=== PATIENT | female | born 1980 | race American Indian/Alaskan Native ===

== ENCOUNTER 2021-11-20 01:07 | Inpatient (IN) | payer MEDICAID ==
[2021-11-20] MEDS ORDERED: dilTIAZem 25 MG/5 ML INJ IV ONE (01:47)
[2021-11-20] MEDS ORDERED: dilTIAZem/D5W 100 MG/100 ML BAG IV SCH (02:00)
[2021-11-20 02:46] LABS: Basophils # (Auto) 0.1 K/mm3 (0.0-0.1); Basophils % (Auto) 0.8 % (0.0-1.8); Eosinophils # (Auto) 0.4 K/mm3 (0.0-0.4); Eosinophils % (Auto) 2.8 % (0.0-4.3); Hematocrit 40.7 % (30.3-42.9); Hemoglobin 13.2 gm/dl (10.1-14.3); Lymphocytes # (Auto) 4.2 K/mm3 (1.2-5.4); Lymphocytes % (Auto) 33.5 % (13.4-35.0); Mean Corpuscular HGB Conc 33 % (30-34); Mean Corpuscular Volume 84 fl (79-97); Monocytes # (Auto) 0.7 K/mm3 (0.0-0.8); Monocytes % (Auto) 5.5 % (0.0-7.3); Platelet Count 250 K/mm3 (140-440); Red Blood Count 4.84 M/mm3 (3.65-5.03); Red Cell Distribution Width 13.1 % (13.2-15.2)
[2021-11-20 02:54] LABS: INR 1.04 (0.87-1.13)
[2021-11-20 02:55] LABS: Partial Thromboplastin Time 24.1 Sec. (24.2-36.6)
[2021-11-20 03:08] LABS: BUN/Creatinine Ratio 13; Blood Urea Nitrogen 10 mg/dL (7-17); Calcium 9.2 mg/dL (8.4-10.2); Hemolysis Index 6
[2021-11-20 03:15] LABS: Free T4 (Free Thyroxine) 1.37 ng/dL (0.76-1.46)
--- NOTE | 2021-11-20 03:30 | Emergency Department Report ---
ED Palpitations HPI - General Chief Complaint: Chest Pain Stated Complaint: CHEST PAIN Time Seen by Provider: 11/20/21 01:37 Source: patient, old records reviewed (No previous medical record for review) Mode of arrival: Ambulatory Limitations: No Limitations - History of Present Illness Initial Comments: 41-year-old female with a past medical history of obesity and previous A. fib in the past presents to the hospital complaints of palpitations that started just prior to arrival. Patient was about to lay down to go to bed when she felt her heart racing with shortness of breath and very mild chest tightness. Symptoms worse with exertion. Upon triage assessment patient was noted to have a heart rate of 150s with A. fib on the initial EKG. 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 Patient states she has a previous history of atrial fibril lation and was on Eliquis and unknown heart rate control medication in the past. She has been off her meds for the past 2 years since she converted to sinus rhythm. Patient has recently been on vacation for the last several days has been increasing her caffeine intake and drinking coffee and a lot of Coca-Cola. She also missed her daily dose of a.m. dose of propanolol and did not take it yesterday evening. - Related Data Allergies Allergy/AdvReac Type Severity Reaction Status Date / Time No Known Allergies Allergy Verified 11/20/21 01:27 ED Review of Systems ROS: Stated complaint: CHEST PAIN Other details as noted in HPI Comment: All other systems reviewed and negative ED Past Medical Hx - Past Medical History Additional medical history: hx: a fib - Surgical History Past Surgical History?: No ED Physical Exam - General Limitations: No Limitations - Other Other exam information: General: No acute distress Head: Atraumatic Eyes: normal appearance ENT: Moist mucous membranes Neck: Normal appearance, no midline tenderness Chest: Clear to auscultation bilaterally CV: Tachycardic irregular rhythm Abdomen: Soft, normal bowel sounds, nontender, nondistended, no rebound or guarding Back: Normal inspection Extremity: Normal inspection, full range of motion Neuro: Alert O x 3, no facial asymmetry, speech clear, no gross motor sensory deficit Psych: Appropriate behavior Skin: No rash ED Course Vital Signs 11/20/21 11/20/21 11/20/21 01:26 01:45 02:00 Temperature Pulse Rate 121 H 120 H 163 H Respiratory 21 20 18 Rate Blood Pressure 117/86 91/73 Blood Pressure 125/101 [Left] O2 Sat by Pulse 98 97 100 Oximetry 11/20/21 11/20/21 11/20/21 02:08 02:15 02:26 Temperature 97.7 F Pulse Rate 129 H 85 Respiratory 26 H Rate Blood Pressure 132/100 113/72 Blood Pressure [Left] O2 Sat by Pulse 97 Oximetry - Reevaluation(s) Reevaluation #1: 11/20/21 04:03 Nurse informs me that systolic blood pressure in the 90s. Nurse instructed to decrease Cardizem rate to 2.5 mg/h and provide 500 normal saline bolus ED Medical Decision Making - Lab Data Result diagrams: 11/20/21 02:23 11/20/21 02:23 Lab Results 11/20/21 11/20/21 11/20/21 Range/Units 02:23 02:23 02:23 WBC 12.4 H (4.5-11.0) K/mm3 RBC 4.84 (3.65-5.03) M/mm3 Hgb 13.2 (10.1-14.3) gm/dl Hct 40.7 (30.3-42.9) % MCV 84 (79-97) fl MCH 27 L (28-32) pg MCHC 33 (30-34) % RDW 13.1 L (13.2-15.2) % Plt Count 250 (140-440) K/mm3 Lymph % (Auto) 33.5 (13.4-35.0) % Gregory % (Auto) 5.5 (0.0-7.3) % Eos % (Auto) 2.8 (0.0-4.3) % Baso % (Auto) 0.8 (0.0-1.8) % Lymph # (Auto) 4.2 (1.2-5.4) K/mm3 Gregory # (Auto) 0.7 (0.0-0.8) K/mm3 Eos # (Auto) 0.4 (0.0-0.4) K/mm3 Baso # (Auto) 0.1 (0.0-0.1) K/mm3 Seg Neutrophils % 57.4 (40.0-70.0) % Seg Neutrophils # 7.1 (1.8-7.7) K/mm3 PT 14.7 (12.2-14.9) Sec. INR 1.04 (0.87-1.13) APTT 24.1 L (24.2-36.6) Sec. Sodium (137-145) mmol/L Potassium (3.6-5.0) mmol/L Chloride (98-107) mmol/L Carbon Dioxide (22-30) mmol/L Anion Gap mmol/L BUN (7-17) mg/dL Creatinine (0.6-1.2) mg/dL Estimated GFR ml/min BUN/Creatinine Ratio % Glucose (65-100) mg/dL Calcium (8.4-10.2) mg/dL Troponin T (0.00-0.029) ng/mL TSH (0.270-4.200) mlU/mL Free T4 (0.76-1.46) ng/dL HCG, Qual Negative (Negative) 11/20/21 11/20/21 Range/Units 02:23 02:23 WBC (4.5-11.0) K/mm3 RBC (3.65-5.03) M/mm3 Hgb (10.1-14.3) gm/dl Hct (30.3-42.9) % MCV (79-97) fl MCH (28-32) pg MCHC (30-34) % RDW (13.2-15.2) % Plt Count (140-440) K/mm3 Lymph % (Auto) (13.4-35.0) % Gregory % (Auto) (0.0-7.3) % Eos % (Auto) (0.0-4.3) % Baso % (Auto) (0.0-1.8) % Lymph # (Auto) (1.2-5.4) K/mm3 Gregory # (Auto) (0.0-0.8) K/mm3 Eos # (Auto) (0.0-0.4) K/mm3 Baso # (Auto) (0.0-0.1) K/mm3 Seg Neutrophils % (40.0-70.0) % Seg Neutrophils # (1.8-7.7) K/mm3 PT (12.2-14.9) Sec. INR (0.87-1.13) APTT (24.2-36.6) Sec. Sodium 141 (137-145) mmol/L Potassium 4.1 (3.6-5.0) mmol/L Chloride 104.3 (98-107) mmol/L Carbon Dioxide 23 (22-30) mmol/L Anion Gap 18 mmol/L BUN 10 (7-17) mg/dL Creatinine 0.8 (0.6-1.2) mg/dL Estimated GFR > 60 ml/min BUN/Creatinine Ratio 13 % Glucose 106 H (65-100) mg/dL Calcium 9.2 (8.4-10.2) mg/dL Troponin T < 0.010 (0.00-0.029) ng/mL TSH 1.230 (0.270-4.200) mlU/mL Free T4 1.37 (0.76-1.46) ng/dL HCG, Qual (Negative) - EKG Data -: EKG Interpreted by Me (Atrial fibrillation) EKG shows normal: intervals (QTC 471), QRS complexes (QRS duration 79), ST-T waves Rate: tachycardia (Rate 151) - Medical Decision Making 41-year-old female presents to the hospital [facility] with RVR with symptoms of shortness of breath and chest tightness. Patient has a history of same in the past but has been in sinus rhythm for the last 2 years. Heart rate improved after Cardizem bolus 20 mg followed by Cardizem drip at 5 milligrams per hour. Cardiology consult ordered. Patient exacerbation could be secondary to increased caffeine intake and delayed propanolol intake as well. hospitalist informed for admission Critical Care Time: Yes Critical care time in (mins) excluding proc time.: 35 Critical care attestation.: If time is entered above; I have spent that time in minutes in the direct care of this critically ill patient, excluding procedure time. Critical Care Time: 35 Minutes of critical care time excluding procedures were used in the care of the patient. I came immediately to the bedside upon patient's arrival once I was made aware of the patient. Patient required IV cardiac medication to stabilize heart rate and he required Cardizem drip to maintain heart rate less than 100. Cardiology consult ordered. Hospitalist admitted. ED Disposition Clinical Impression: Atrial fibrillation with rapid ventricular response Disposition: ADMITTED INPATIENT Is pt being admited?: Yes Does the pt Need Aspirin: No Condition: Stable Time of Disposition: 03:24 (Dr Bowman)
--- NOTE | 2021-11-20 03:42 | XRay Report ---
CHEST 1 VIEW 11/20/2021 3:03 AM INDICATION / CLINICAL INFORMATION: Palpitations. COMPARISON: None available. FINDINGS: SUPPORT DEVICES: None. HEART / MEDIASTINUM: No significant abnormality. LUNGS / PLEURA: No significant pulmonary or pleural abnormality. No pneumothorax. ADDITIONAL FINDINGS: No significant additional findings. IMPRESSION: 1. No acute findings. Signer Name: Ant Stewart MD Signed: 11/20/2021 3:37 AM Workstation Name: [id number]
[2021-11-20] MEDS ORDERED: SODIUM CHLORIDE 0.9% 500 ML 500 ML IV ONE (04:03)
[2021-11-20] MEDS ORDERED: SODIUM CHLORIDE 0.9% 500 ML 500 ML ONE (04:04)
[2021-11-20] MEDS ORDERED: ACETAMINOPHEN 325 MG TAB PO PRN ×2 (04:45)
[2021-11-20] MEDS ORDERED: NITROGLYCERIN 0.4 MG TAB SUBL SL PRN (04:45)
[2021-11-20] MEDS ORDERED: MORPHINE 2 MG/1 ML INJ IV PRN (04:45)
[2021-11-20] MEDS ORDERED: ONDANSETRON 4 MG/2 ML INJ IV PRN (04:45)
[2021-11-20] MEDS ORDERED: ALBUTEROL 2.5 MG/3 ML NEBU IH PRN (04:45)
[2021-11-20] MEDS ORDERED: HYDROmorphone 1 MG/1 ML INJ IV PRN (04:45)
[2021-11-20] MEDS ORDERED: traMADol 50 MG TAB PO PRN (04:45)
--- NOTE | 2021-11-20 04:54 | History and Physical Report ---
History of Present Illness Date of examination: 11/20/21 Date of admission: 11/20/21 Chief complaint: Chest pain Palpitation A. fib History of present illness: 41-year-old female with a past medical history of obesity and previous A. fib was brought to the emergency room because of palpitation arrhythmia and chest pain since this evening. Patient was about to lay down to go to bed when she felt her heart racing with shortness of breath and very mild chest tightness. Symptoms worse with exertion. Upon triage assessment patient was noted to have a heart rate of 150s with A. fib on the initial EKG. 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 Patient states she has a previous history of atrial fibrillation and was on Eliquis and unknown heart rate control medication in the past. She has been off her meds for the past 2 years since she converted to sinu s rhythm. Patient has recently been on vacation for the last several days has been increasing her caffeine intake and drinking coffee and a lot of Coca-Cola. She also missed her daily dose of a.m. dose of propanolol and did not take it yesterday evening. In the emergency room patient is found to have A. fib with RVR. Heart rate improved after Cardizem bolus 20 mg followed by Cardizem drip at 5 milligrams per hour. Cardiology consult ordered. Patient exacerbation could be secondary to increased caffeine intake and delayed propanolol intake as well. Past History Past Medical History: atrial fib Medications and Allergies Allergies Allergy/AdvReac Type Severity Reaction Status Date / Time amoxicillin Allergy Hives Verified 11/20/21 04:19 Active Meds: Active Medications Diltiazem HCl (Cardizem/D5w 100mg/100ml) 100 mg in 100 mls @ 5 mls/hr IV TITR NAV; Protocol Last Titration: 11/20/21 04:05 Dose: 2.5 mg/hr, 2.5 mls/hr Review of Systems All systems: negative Cardiovascular: chest pain, palpitations, rapid/irregular heart beat, lightheadedness Exam - Constitutional Vitals: Temp Pulse Resp BP Pulse Ox 97.7 F 110 H 15 92/55 98 11/20/21 02:26 11/20/21 04:01 11/20/21 04:01 11/20/21 04:01 11/20/21 04:01 General appearance: Present: no acute distress, well-nourished - EENT Eyes: Present: PERRL ENT: hearing intact, clear oral mucosa - Neck Neck: Present: supple, normal ROM - Respiratory Respiratory effort: normal Respiratory: bilateral: diminished - Cardiovascular Rhythm: irregularly irregular Heart Sounds: Present: S1 & S2. Absent: rub, click - Extremities Extremities: pulses symmetrical, No edema Peripheral Pulses: within normal limits - Abdominal General gastrointestinal: Present: soft, non-tender, non-distended, normal bowel sounds Female genitourinary: Present: normal - Integumentary Integumentary: Present: clear, warm, dry - Musculoskeletal Musculoskeletal: gait normal, strength equal bilaterally - Psychiatric Psychiatric: appropriate mood/affect, intact judgment & insight - Neurologic Neurologic: CNII-XII intact, moves all extremities HEART Score - HEART Score Troponin: Troponin T < 0.010 ng/mL (0.00-0.029) 11/20/21 02:23 Results - Labs CBC & Chem 7: 11/20/21 02:23 11/20/21 02:23 Labs: Laboratory Last Values WBC 12.4 K/mm3 (4.5-11.0) H 11/20/21 02:23 RBC 4.84 M/mm3 (3.65-5.03) 11/20/21 02:23 Hgb 13.2 gm/dl (10.1-14.3) 11/20/21 02:23 Hct 40.7 % (30.3-42.9) 11/20/21 02:23 MCV 84 fl (79-97) 11/20/21 02:23 MCH 27 pg (28-32) L 11/20/21 02:23 MCHC 33 % (30-34) 11/20/21 02:23 RDW 13.1 % (13.2-15.2) L 11/20/21 02:23 Plt Count 250 K/mm3 (140-440) 11/20/21 02:23 Lymph % (Auto) 33.5 % (13.4-35.0) 11/20/21 02:23 Baker % (Auto) 5.5 % (0.0-7.3) 11/20/21 02: Eos % (Auto) 2.8 % (0.0-4.3) 11/20/21 02:23 Baso % (Auto) 0.8 % (0.0-1.8) 11/20/21 02:23 Lymph # (Auto) 4.2 K/mm3 (1.2-5.4) 11/20/21 02:23 Baker # (Auto) 0.7 K/mm3 (0.0-0.8) 11/20/21 02:23 Eos # (Auto) 0.4 K/mm3 (0.0-0.4) 11/20/21 02:23 Baso # (Auto) 0.1 K/mm3 (0.0-0.1) 11/20/21 02:23 Seg Neutrophils % 57.4 % (40.0-70.0) 11/20/21 02: Seg Neutrophils # 7.1 K/mm3 (1.8-7.7) 11/20/21 02: PT 14.7 Sec. (12.2-14.9) 11/20/21 02: INR 1.04 (0.87-1.13) 11/20/21 02:23 APTT 24.1 Sec. (24.2-36.6) L 11/20/21 02:23 Sodium 141 mmol/L (137-145) 11/20/21 02:23 Potassium 4.1 mmol/L (3.6-5.0) 11/20/21 02: Chloride 104.3 mmol/L (98-107) 11/20/21 02:23 Carbon Dioxide 23 mmol/L (22-30) 11/20/21 02:23 Anion Gap 18 mmol/L 11/20/21 02:23 BUN 10 mg/dL (7-17) 11/20/21 02:23 Creatinine 0.8 mg/dL (0.6-1.2) 11/20/21 02:23 Estimated GFR > 60 ml/min 11/20/21 02:23 BUN/Creatinine Ratio 13 % 11/20/21 02:23 Glucose 106 mg/dL (65-100) H 11/20/21 02:23 Calcium 9.2 mg/dL (8.4-10.2) 11/20/21 02:23 Troponin T < 0.010 ng/mL (0.00-0.029) 11/20/21 02:23 TSH 1.230 mlU/mL (0.270-4.200) 11/20/21 02:23 Free T4 1.37 ng/dL (0.76-1.46) 11/20/21 02:23 HCG, Qual Negative (Negative) 11/20/21 02:23 - Imaging and Cardiology Chest x-ray: report reviewed Assessment and Plan VTE prophylaxis?: Chemical Plan of care discussed with patient/family: Yes - Patient Problems (1) Atrial fibrillation with rapid ventricular response Current Visit: Yes Status: Acute Plan to address problem: Admit the patient to the ICU. Oxygen per nasal cannula 3 L/min. DuoNeb by nebulizer every 4 hours. Aspirin 325 mg p.o. daily. Lipitor 40 mg p.o. daily. Echocardiogram. Patient is on Cardizem drip as per protocol. Cardiology consult. Heparin 5000 units subcu every 8 hours. (2) Acute coronary syndrome Current Visit: Yes Status: Acute Plan to address problem: Oxygen per nasal cannula 3 L/min. DuoNeb by nebulizer every 4 hours. Aspirin 325 mg p.o. daily. Lipitor 40 mg p.o. daily. Echocardiogram. Cardiology consult. Heparin 5000 units subcu every 8 hours. (3) DVT prophylaxis Current Visit: Yes Status: Acute Plan to address problem: Heparin 5000 units subcu every 8 hours for DVT prophylaxis. Pepcid 20 mg p.o. twice daily for GI prophylaxis. Patient is a full code
[2021-11-20] MEDS ORDERED: ALPRAZolam 0.25 MG TAB PO ONE (05:19)
[2021-11-20] MEDS ORDERED: HEPARIN 5,000 UNIT/1 ML VIAL SUB-Q SCH (06:00)
[2021-11-20 06:01] LABS: Hematocrit 39.8 % (30.3-42.9); Hemoglobin 12.8 gm/dl (10.1-14.3); Mean Corpuscular HGB Conc 32 % (30-34); Mean Corpuscular Volume 84 fl (79-97); Platelet Count 251 K/mm3 (140-440); Red Blood Count 4.72 M/mm3 (3.65-5.03); Red Cell Distribution Width 13.1 % (13.2-15.2)
[2021-11-20 06:26] LABS: Blood Urea Nitrogen 9 mg/dL (7-17); Calcium 8.8 mg/dL (8.4-10.2); Hemolysis Index 2
[2021-11-20 06:29] LABS: BUN/Creatinine Ratio 13
[2021-11-20 07:00] LABS: Basophils % (Manual) 0 % (0.0-1.8); RBC Morphology Normal; Total Cells Counted 100
[2021-11-20 07:01] LABS: Platelet Estimate Consistent w Auto
[2021-11-20] MEDS ORDERED: IPRATROPIUM/ALBUTEROL SULFATE 3 ML AMPUL.NEB IH SCH (08:00)
--- NOTE | 2021-11-20 09:00 | Electrocardiograph Report ---
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
--- NOTE | 2021-11-20 09:47 | Consultation ---
History of Present Illness - Reason for Consult Consult date: 11/20/21 Afib Requesting physician: HECTOR HOWARD - History of Present Illness 41 y/o with prior afib admitted with afib with RVR Past History Past Medical History: atrial fib Medications and Allergies Allergies Allergy/AdvReac Type Severity Reaction Status Date / Time amoxicillin Allergy Hives Verified 11/21/21 08:11 Home Medications Medication Instructions Recorded Confirmed Last Taken Type Apixaban [Eliquis] 5 mg PO Q12HR 30 Days #60 tablet 11/21/21 Unknown Rx Ascorbic Acid [Vitamin C] 1,000 mg PO QDAY 11/21/21 11/21/21 1 Week Ago History ~11/14/21 AtorvaSTATin [Lipitor] 40 mg PO QHS 30 Days #30 tablet 11/21/21 Unknown Rx Cholecalciferol (Vitamin D3) 1,250 mcg PO QWEEK 11/21/21 11/21/21 11/20/21 History [Vitamin D3 50,000UNIT CAP] Multivitamin Tab [Multiple Vitamin 1 each PO QDAY 11/21/21 11/21/21 1 Week Ago History TAB (Theragran)] ~11/14/21 [place]-3 Fatty Acids/Fish Oil [Fish 1 each PO DAILY 11/21/21 11/21/21 11/20/21 History Oil] Omeprazole 40 mg PO QDAY 11/21/21 11/21/21 11/20/21 History dilTIAZem HCL [Tiadylt ER] 240 mg PO DAILY 30 Days #30 tab 11/21/21 Unknown Rx Active Meds: Active Medications Acetaminophen (Acetaminophen 325 Mg Tab) 650 mg PO Q4H PRN PRN Reason: Pain MILD(1-3)/Fever >100.5/REIS Aspirin (Aspirin Ec 325 Mg Tab) 325 mg PO QDAY NAV Atorvastatin Calcium (Atorvastatin 40 Mg Tab) 40 mg PO QHS NAV Famotidine (Famotidine 20 Mg Tab) 20 mg PO BID NAV Heparin Sodium (Porcine) (Heparin 5,000 Unit/1 Ml Vial) 5,000 unit SUB-Q Q8HR [facility] Last Admin: 11/20/21 05:31 Dose: 5,000 unit Hydromorphone HCl (Hydromorphone 1 Mg/1 Ml Inj) 0.5 mg IV Q3H PRN PRN Reason: Pain , Severe (7-10) Diltiazem HCl (Cardizem/D5w 100mg/100ml) 100 mg in 100 mls @ 5 mls/hr IV TITR NAV; Protocol Last Titration: 11/20/21 04:05 Dose: 2.5 mg/hr, 2.5 mls/hr Morphine Sulfate (Morphine 2 Mg/1 Ml Inj) 2 mg IV Q4H PRN PRN Reason: Pain, Moderate (4-6) Nitroglycerin (Nitroglycerin 0.4 Mg Tab Subl) 0.4 mg SL Q5M PRN PRN Reason: Chest Pain Ondansetron HCl (Ondansetron 4 Mg/2 Ml Inj) 4 mg IV Q8H PRN PRN Reason: Nausea And Vomiting Sodium Chloride (Sodium Chloride 0.9% 10 Ml Flush Syringe) 10 ml IV BID NAV Sodium Chloride (Sodium Chloride 0.9% 10 Ml Flush Syringe) 10 ml IV PRN PRN PRN Reason: LINE FLUSH Sodium Chloride (Sodium Chloride 0.9% 10 Ml Flush Syringe) 10 ml IV PRN PRN PRN Reason: LINE FLUSH Tramadol HCl (Tramadol 50 Mg Tab) 50 mg PO Q6H PRN PRN Reason: Pain, Moderate (4-6) Exam - Constitutional Vitals: Temp Pulse Resp BP Pulse Ox 97.7 F 112 H 13 95/42 97 11/20/21 02:26 11/20/21 07:31 11/20/21 07:31 11/20/21 07:31 11/20/21 07:31 Results - Labs CBC & Chem 7: 11/21/21 04:17 11/21/21 04:17 Labs: Abnormal lab results 11/20/21 11/20/21 11/20/21 Range/Units 02:23 02:23 02:23 WBC 12.4 H (4.5-11.0) K/mm3 MCH 27 L (28-32) pg RDW 13.1 L (13.2-15.2) % Lymphocytes % (Manual) (13.4-35.0) % Eosinophils % (Manual) (0.0-4.3) % Eosinophils # (Manual) (0.0-0.4) K/mm3 APTT 24.1 L (24.2-36.6) Sec. Chloride (98-107) mmol/L Carbon Dioxide (22-30) mmol/L Glucose 106 H (65-100) mg/dL 11/20/21 11/20/21 Range/Units 05:36 05:36 WBC 11.4 H (4.5-11.0) K/mm3 MCH 27 L (28-32) pg RDW 13.1 L (13.2-15.2) % Lymphocytes % (Manual) 43.0 H (13.4-35.0) % Eosinophils % (Manual) 5.0 H (0.0-4.3) % Eosinophils # (Manual) 0.6 H (0.0-0.4) K/mm3 APTT (24.2-36.6) Sec. Chloride 107.4 H (98-107) mmol/L Carbon Dioxide 21 L (22-30) mmol/L Glucose (65-100) mg/dL Assessment and Plan 41 y/o female with afib with RVR now rate controlled on oral therapy No current indication for ICU. Will sign off.
--- NOTE | 2021-11-20 09:49 | Progress Note ---
Assessment and Plan Assessment and plan: Dispo: can downgrade to tele bed. likely d/c in the morning. #Atrial fibrillation with rapid ventricular response - afib rvr on tele and EKG ventricular rate as high as 130's. on 3L/min nc. - history of "palpitations" was seen by cardiology a year ago but was told to d/c eliquis due to no event being found. Also was on metoprolol but d/c due to fatigue and dizziness. - currently rate controlled - continuous telemetry - d/c nasal cannula, patient can tolerate room air. - diltizem gtt now d/c - start diltiazem 60 mg po tid - start Eliquis 5 mg po bid - ECHO pending #Essential hypertension - takes propranolol as OP. - resume home med. # Morbid Obesity - BMI 39.3 - behavioral counseling on need for weight loss and the effect on overall health. +15 mins #Nicotine Use - patient vapes. Behavioral health counseling, risks, and quitting strategies communicated to patient in regards to vaping. +15 min #Advance care planning Disease education conducted, care plan discussed, diagnoses discussed, prognosis discussed, patient is full code, patient acknowledges understanding and agree with care plan, +30 minutes. The high probability of a clinically significant, sudden or life threatening deterioration of the [cardiac] system(s) required my full and direct attention, intervention and personal management. The aggregate critical care time was [60] minutes. This time is in addition to time spent performing reported procedures but includes the following: [x] Data Review and interpretation [x] Patient assessment and monitoring of vital signs [x] Documentation [x] Medication orders and management History Interval history: Patient has no complaints this AM. States that shortness of breath and papitations have improved and nearly resolved. HR currently controlled, rhythm is afib on tele monitoring during my encounter. Patient was on 2L NC for comfort but advised RN to d/c. She was satting 98% on my encounter while supplemental O2 was removed. Hospitalist Physical - Physical exam Narrative exam: Physical Exam: VITAL SIGNS: Reviewed. GENERAL: The patient appears normally developed, Vital signs as documented. Elevated BMI HEAD: No signs of head trauma. EYES: Pupils are equal. Extraocular motions intact. EARS: Hearing grossly intact. MOUTH: Oropharynx is normal. NECK: No adenopathy, no JVD. CHEST: Chest with clear breath sounds bilaterally. No wheezes, rales, or rhonchi. CARDIAC: Regular rate and irregular rhythm. S1 and S2, without murmurs, gallops, or rubs. VASCULAR: No Edema. Peripheral pulses normal and equal in all extremities. ABDOMEN: Soft, non tender and non distended. No rebound or guarding, and no masses palpated. Bowel Sounds normal. MUSCULOSKELETAL: Good range of motion of all major joints. Extremities without clubbing, cyanosis or edema. NEUROLOGIC EXAM: Alert and oriented x 4. no focal sensory or strength deficits. PSYCHIATRIC: Mood normal. SKIN: detail exam as documented in skin assessment - Constitutional Vitals: Temp Pulse Resp BP Pulse Ox 97.7 F 112 H 13 95/42 97 11/20/21 02:26 11/20/21 07:31 11/20/21 07:31 11/20/21 07:31 11/20/21 07:31 General appearance: Present: no acute distress, well-nourished HEART Score - HEART Score Troponin: Troponin T < 0.010 ng/mL (0.00-0.029) 11/20/21 07:50 Results - Labs CBC & Chem 7: 11/20/21 05:36 11/20/21 05:36 Labs: Laboratory Last Values WBC 11.4 K/mm3 (4.5-11.0) H 11/20/21 05:36 RBC 4.72 M/mm3 (3.65-5.03) 11/20/21 05:36 Hgb 12.8 gm/dl (10.1-14.3) 11/20/21 05:36 Hct 39.8 % (30.3-42.9) 11/20/21 05:36 MCV 84 fl (79-97) 11/20/21 05:36 MCH 27 pg (28-32) L 11/20/21 05:36 MCHC 32 % (30-34) 11/20/21 05:36 RDW 13.1 % (13.2-15.2) L 11/20/21 05:36 Plt Count 251 K/mm3 (140-440) 11/20/21 05:36 Lymph % (Auto) 33.5 % (13.4-35.0) 11/20/21 02:23 [place] % (Auto) 5.5 % (0.0-7.3) 11/20/21 02:23 Eos % (Auto) 2.8 % (0.0-4.3) 11/20/21 02:23 Baso % (Auto) 0.8 % (0.0-1.8) 11/20/21 02:23 Lymph # (Auto) Fitter Machinist 11/20/21 05:36 [place] # (Auto) 0.7 K/mm3 (0.0-0.8) 11/20/21 02:23 Eos # (Auto) 0.4 K/mm3 (0.0-0.4) 11/20/21 02:23 Baso # (Auto) 0.1 K/mm3 (0.0-0.1) 11/20/21 02:23 Add Manual Diff Complete 11/20/21 05:36 Total Counted 100 11/20/21 05:36 Seg Neutrophils % 57.4 % (40.0-70.0) 11/20/21 02:23 Seg Neuts % (Manual) 51.0 % (40.0-70.0) 11/20/21 05:36 Band Neutrophils % 0 % 11/20/21 05:36 Lymphocytes % (Manual) 43.0 % (13.4-35.0) H 11/20/21 05:36 Reactive Lymphs % (Man) 0 % 11/20/21 05:36 Monocytes % (Manual) 1.0 % (0.0-7.3) 11/20/21 05:36 Eosinophils % (Manual) 5.0 % (0.0-4.3) H 11/20/21 05:36 Basophils % (Manual) 0 % (0.0-1.8) 11/20/21 05:36 Metamyelocytes % 0 % 11/20/21 05:36 Myelocytes % 0 % 11/20/21 05:36 Promyelocytes % 0 % 11/20/21 05:36 Blast Cells % 0 % 11/20/21 05:36 Nucleated RBC % Not Reportable 11/20/21 05:36 Seg Neutrophils # 7.1 K/mm3 (1.8-7.7) 11/20/21 02:23 Seg Neutrophils # Man 5.8 K/mm3 (1.8-7.7) 11/20/21 05:36 Band Neutrophils # 0.0 K/mm3 11/20/21 05:36 Lymphocytes # (Manual) 4.9 K/mm3 (1.2-5.4) 11/20/21 05:36 Abs React Lymphs (Man) 0.0 K/mm3 11/20/21 05:36 Monocytes # (Manual) 0.1 K/mm3 (0.0-0.8) 11/20/21 05:36 Eosinophils # (Manual) 0.6 K/mm3 (0.0-0.4) H 11/20/21 05:36 Basophils # (Manual) 0.0 K/mm3 (0.0-0.1) 11/20/21 05:36 Metamyelocytes # 0.0 K/mm3 11/20/21 05:36 Myelocytes # 0.0 K/mm3 11/20/21 05:36 Promyelocytes # 0.0 K/mm3 11/20/21 05:36 Blast Cells # 0.0 K/mm3 11/20/21 05:36 WBC Morphology Not Reportable 11/20/21 05:36 Hypersegmented Neuts Not Reportable 11/20/21 05:36 Hyposegmented Neuts Not Reportable 11/20/21 05:36 Hypogranular Neuts Not Reportable 11/20/21 05:36 Smudge Cells Not Reportable 11/20/21 05:36 Toxic Granulation Not Reportable 11/20/21 05:36 Toxic Vacuolation Not Reportable 11/20/21 05:36 Dohle Bodies Not Reportable 11/20/21 05:36 Pelger-Huet Anomaly Not Reportable 11/20/21 05:36 Efren Rods Not Reportable 11/20/21 05:36 Platelet Estimate Consistent w auto 11/20/21 05:36 Clumped Platelets Not Reportable 11/20/21 05:36 Plt Clumps, EDTA Not Reportable 11/20/21 05:36 Large Platelets Not Reportable 11/20/21 05:36 Giant Platelets Not Reportable 11/20/21 05:36 Platelet Satelliting Not Reportable 11/20/21 05:36 Plt Morphology Comment Not Reportable 11/20/21 05:36 RBC Morphology Normal 11/20/21 05:36 Dimorphic RBCs Not Reportable 11/20/21 05:36 Polychromasia Not Reportable 11/20/21 05:36 Hypochromasia Not Reportable 11/20/21 05:36 Poikilocytosis Not Reportable 11/20/21 05:36 Anisocytosis Not Reportable 11/20/21 05:36 Microcytosis Not Reportable 11/20/21 05:36 Macrocytosis Not Reportable 11/20/21 05:36 Spherocytes Not Reportable 11/20/21 05:36 Pappenheimer Bodies Not Reportable 11/20/21 05:36 Sickle Cells Not Reportable 11/20/21 05:36 Target Cells Not Reportable 11/20/21 05:36 Tear Drop Cells Not Reportable 11/20/21 05:36 Ovalocytes Not Reportable 11/20/21 05:36 Helmet Cells Not Reportable 11/20/21 05:36 [place] Bodies Not Reportable 11/20/21 05:36 [place] Rings Not Reportable 11/20/21 05:36 [place] Cells Not Reportable 11/20/21 05:36 Bite Cells Not Reportable 11/20/21 05:36 Crenated Cell Not Reportable 11/20/21 05:36 Elliptocytes Not Reportable 11/20/21 05:36 Acanthocytes (Spur) Not Reportable 11/20/21 05:36 Rouleaux Not Reportable 11/20/21 05:36 Hemoglobin C Crystals Not Reportable 11/20/21 05:36 Schistocytes Not Reportable 11/20/21 05:36 Malaria parasites Not Reportable 11/20/21 05:36 Jareth Bodies Not Reportable 11/20/21 05:36 Hem Pathologist Commnt No 11/20/21 05:36 PT 14.7 Sec. (12.2-14.9) 11/20/21 02:23 INR 1.04 (0.87-1.13) 11/20/21 02:23 APTT 24.1 Sec. (24.2-36.6) L 11/20/21 02:23 Sodium 143 mmol/L (137-145) 11/20/21 05:36 Potassium 3.9 mmol/L (3.6-5.0) 11/20/21 05:36 Chloride 107.4 mmol/L (98-107) H 11/20/21 05:36 Carbon Dioxide 21 mmol/L (22-30) L 11/20/21 05:36 Anion Gap 19 mmol/L 11/20/21 05:36 BUN 9 mg/dL (7-17) 11/20/21 05:36 Creatinine 0.7 mg/dL (0.6-1.2) 11/20/21 05:36 Estimated GFR > 60 ml/min 11/20/21 05:36 BUN/Creatinine Ratio 13 % 11/20/21 05:36 Glucose 95 mg/dL (65-100) 11/20/21 05:36 Calcium 8.8 mg/dL (8.4-10.2) 11/20/21 05:36 Troponin T < 0.010 ng/mL (0.00-0.029) 11/20/21 07:50 TSH 1.230 mlU/mL (0.270-4.200) 11/20/21 02:23 Free T4 1.37 ng/dL (0.76-1.46) 11/20/21 02:23 HCG, Qual Negative (Negative) 11/20/21 02:23 Active Medications - Current Medications Current Medications: Generic Name Dose Route Start Last Admin Trade Name Freq PRN Reason Stop Dose Admin Acetaminophen 650 mg 11/20/21 04:45 Acetaminophen 325 Mg Tab PO Q4H PRN Pain MILD(1-3)/Fever >100.5/REIS Aspirin 325 mg 11/21/21 10:00 Aspirin Ec 325 Mg Tab PO QDAY [facility] Atorvastatin Calcium 40 mg 11/20/21 22:00 Atorvastatin 40 Mg Tab PO QHS [facility] Famotidine 20 mg 11/20/21 10:00 Famotidine 20 Mg Tab PO BID [facility] Heparin Sodium (Porcine) 5,000 unit 11/20/21 06:00 11/20/21 05:31 Heparin 5,000 Unit/1 Ml Vial SUB-Q 5,000 unit Q8HR NAV Administration Hydromorphone HCl 0.5 mg 11/20/21 04:45 Hydromorphone 1 Mg/1 Ml Inj IV Q3H PRN Pain , Severe (7-10) Diltiazem HCl 100 mg in 100 mls @ 5 mls/hr 11/20/21 02:00 11/20/21 04:05 Cardizem/D5w 100mg/100ml IV 2.5 mg/hr TITR NAV 2.5 mls/hr Titration Protocol 5 MG/HR Morphine Sulfate 2 mg 11/20/21 04:45 Morphine 2 Mg/1 Ml Inj IV Q4H PRN Pain, Moderate (4-6) Nitroglycerin 0.4 mg 11/20/21 04:45 Nitroglycerin 0.4 Mg Tab Subl SL Q5M PRN Chest Pain Ondansetron HCl 4 mg 11/20/21 04:45 Ondansetron 4 Mg/2 Ml Inj IV Q8H PRN Nausea And Vomiting Sodium Chloride 10 ml 11/20/21 10:00 Sodium Chloride 0.9% 10 Ml Flush Syringe IV BID NAV Sodium Chloride 10 ml 11/20/21 04:45 Sodium Chloride 0.9% 10 Ml Flush Syringe IV PRN PRN LINE FLUSH Sodium Chloride 10 ml 11/20/21 04:45 Sodium Chloride 0.9% 10 Ml Flush Syringe IV PRN PRN LINE FLUSH Tramadol HCl 50 mg 11/20/21 04:45 Tramadol 50 Mg Tab PO Q6H PRN Pain, Moderate (4-6)
[2021-11-20] MEDS: FAMOTIDINE 20 MG TAB PO SCH ×2 (10:05→23:57)
[2021-11-20] MEDS: APIXABAN 5 MG TAB PO SCH ×2 (11:11→23:56)
--- NOTE | 2021-11-20 13:50 | Consultation ---
History of Present Illness Consult date: 11/20/21 Requesting physician: ALEXEI MCCLELLAND Consult reason: atrial fibrillation History of present illness: Patient is a 41-year-old female with a past medical history of A. fib who was brought to the ED due to having palpitations 1 day prior to admission. Patient reports she was lying down in bed when she suddenly felt her heart racing and had some shortness of breath with some mild tight chest tightness patient was transferred to [facility] and found to have heart rate of 150s. In ED patient was started on Cardizem drip and heart rate became controlled. Patient reports that she was previously on Eliquis and other medications due to her A. fib but has not been on them in some time since she has been in sinus rhythm. She also reports having increased intake of caffeine. She reports ta hillary propanolol as an outpatient but missed her dose yesterday. At time of interview patient denies chest pain, palpitations, shortness of breath, nausea, vomiting, lightheadedness. 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 Cardiology is consulted for A. fib with RVR Past History Past Medical History: atrial fib Social history: no significant social history Family history: no significant family history Medications and Allergies Allergies Allergy/AdvReac Type Severity Reaction Status Date / Time amoxicillin Allergy Hives Verified 11/20/21 04:19 Active Meds: Active Medications Acetaminophen (Acetaminophen 325 Mg Tab) 650 mg PO Q4H PRN PRN Reason: Pain MILD(1-3)/Fever >100.5/REIS Apixaban (Apixaban 5 Mg Tab) 5 mg PO Q12HR [facility]; Protocol Last Admin: 11/20/21 11:11 Dose: 5 mg Atorvastatin Calcium (Atorvastatin 40 Mg Tab) 40 mg PO QHS NAV Diltiazem HCl (Diltiazem 60 Mg Tab) 60 mg PO Q8HR NAV Famotidine (Famotidine 20 Mg Tab) 20 mg PO BID [facility] Last Admin: 11/20/21 10:05 Dose: 20 mg Nitroglycerin (Nitroglycerin 0.4 Mg Tab Subl) 0.4 mg SL Q5M PRN PRN Reason: Chest Pain Ondansetron HCl (Ondansetron 4 Mg/2 Ml Inj) 4 mg IV Q8H PRN PRN Reason: Nausea And Vomiting Sodium Chloride (Sodium Chloride 0.9% 10 Ml Flush Syringe) 10 ml IV BID NAV Last Admin: 11/20/21 10:05 Dose: 10 ml Sodium Chloride (Sodium Chloride 0.9% 10 Ml Flush Syringe) 10 ml IV PRN PRN PRN Reason: LINE FLUSH Review of Systems Constitutional: no weight loss, no weight gain, no fever, no chills, no sweats Ears, nose, mouth and throat: no nasal congestion, no nasal discharge, no sinus pressure, no sinus pain Cardiovascular: palpitations, rapid/irregular heart beat, no chest pain, no orthopnea, no lightheadedness, no shortness of breath Respiratory: no hemoptysis, no shortness of breath, no dyspnea on exertion Gastrointestinal: no abdominal pain, no nausea, no vomiting, no diarrhea Musculoskeletal: no neck stiffness, no neck pain, no shooting arm pain, no arm numbness/tingling Integumentary: no rash, no pruritis, no redness Neurological: no head injury, no transient paralysis, no paralysis Psychiatric: no anxiety, no memory loss Endocrine: no cold intolerance, no heat intolerance Hematologic/Lymphatic: no easy bruising, no easy bleeding Physical Examination Vital Signs Pulse Resp BP Pulse Ox 121 H 21 125/101 98 11/20/21 01:26 11/20/21 01:26 11/20/21 01:26 11/20/21 01:26 General appearance: no acute distress HEENT: Positive: PERRL Cardiac: Positive: irregularly irregular Lungs: Positive: Normal Breath Sounds Neuro: Positive: Grossly Intact Abdomen: Positive: Soft, Active Bowel Sounds Skin: Negative: Rash, Suspicious Lesions, Ulceration Extremities: Present: normal. Absent: edema Results 11/20/21 14:34 11/20/21 05:36 Coagulation 11/20/21 Range/Units 02:23 PT 14.7 (12.2-14.9) Sec. INR 1.04 (0.87-1.13) APTT 24.1 L (24.2-36.6) Sec. CBC 11/20/21 11/20/21 Range/Units 02:23 05:36 WBC 12.4 H 11.4 H (4.5-11.0) K/mm3 RBC 4.84 4.72 (3.65-5.03) M/mm3 Hgb 13.2 12.8 (10.1-14.3) gm/dl Hct 40.7 39.8 (30.3-42.9) % Plt Count 250 251 (140-440) K/mm3 Lymph # (Auto) 4.2 Egg Buyer (1.2-5.4) K/mm3 [place] # (Auto) 0.7 (0.0-0.8) K/mm3 Eos # (Auto) 0.4 (0.0-0.4) K/mm3 Baso # (Auto) 0.1 (0.0-0.1) K/mm3 Comprehensive Metabolic Panel 11/20/21 11/20/21 Range/Units 02:23 05:36 Sodium 141 143 (137-145) mmol/L Potassium 4.1 3.9 (3.6-5.0) mmol/L Chloride 104.3 107.4 H (98-107) mmol/L Carbon Dioxide 23 21 L (22-30) mmol/L BUN 10 9 (7-17) mg/dL Creatinine 0.8 0.7 (0.6-1.2) mg/dL Glucose 106 H 95 (65-100) mg/dL Calcium 9.2 8.8 (8.4-10.2) mg/dL - Imaging and Cardiology Echo: pending EKG: report reviewed, image reviewed EKG interpretations - Telemetry EKG Rhythm: Atrial Fibrillation - EKG Supraventricular dysrhythmia: atrial fibrillation Assessment and Plan Patient is a 41-year-old female with a past medical history of A. fib who was brought to the ED due to having palpitations 1 day prior to admission Afib w/ RVR Obesity Plan: EKG showed A. fib with RVR rate [address]-T abnormalities. No acute ischemic changes. Troponins negative x3. Patient denies chest pain. AMI ruled out Echo pending Stop diltiazem gtt. Convert to diltiazem 90mg PO Q8hr for rate control Initiate Eliquis for anticoagulation Patient seen in conjunction with Dr. Leiva who agrees with this plan of care - Patient Problems (1) Obesity Current Visit: Yes Status: Acute (2) Acute coronary syndrome Current Visit: Yes Status: Acute (3) Atrial fibrillation with rapid ventricular response Current Visit: Yes Status: Acute (4) DVT prophylaxis Current Visit: Yes Status: Acute
[2021-11-20] MEDS ORDERED: dilTIAZem 60 MG TAB PO SCH ×2 (14:00→15:32)
[2021-11-20 14:55] LABS: Hematocrit 38.6 % (30.3-42.9); Hemoglobin 12.5 gm/dl (10.1-14.3); Mean Corpuscular HGB Conc 32 % (30-34); Mean Corpuscular Volume 84 fl (79-97); Platelet Count 243 K/mm3 (140-440); Red Blood Count 4.58 M/mm3 (3.65-5.03); Red Cell Distribution Width 13.5 % (13.2-15.2)
[2021-11-20 15:08] LABS: INR 1.15 (0.87-1.13)
[2021-11-20 15:09] LABS: Partial Thromboplastin Time 28.4 Sec. (24.2-36.6)
[2021-11-20] MEDS ORDERED: ZOLPIDEM 5 MG TAB PO ONE (23:20)
[2021-11-21 06:13] LABS: Basophils # (Auto) 0.1 K/mm3 (0.0-0.1); Basophils % (Auto) 0.5 % (0.0-1.8); Eosinophils # (Auto) 0.3 K/mm3 (0.0-0.4); Eosinophils % (Auto) 2.6 % (0.0-4.3); Hematocrit 38.3 % (30.3-42.9); Hemoglobin 12.5 gm/dl (10.1-14.3); Lymphocytes # (Auto) 4.1 K/mm3 (1.2-5.4); Lymphocytes % (Auto) 42.2 % (13.4-35.0); Mean Corpuscular HGB Conc 33 % (30-34); Mean Corpuscular Volume 85 fl (79-97); Monocytes # (Auto) 0.6 K/mm3 (0.0-0.8); Monocytes % (Auto) 6.1 % (0.0-7.3); Platelet Count 241 K/mm3 (140-440); Red Blood Count 4.53 M/mm3 (3.65-5.03); Red Cell Distribution Width 13.1 % (13.2-15.2)
[2021-11-21 06:30] LABS: BUN/Creatinine Ratio 12; Blood Urea Nitrogen 11 mg/dL (7-17); Calcium 8.5 mg/dL (8.4-10.2); Hemolysis Index 91
--- NOTE | 2021-11-21 08:53 | Electrocardiograph Report ---
[facility] Test Date: 2021-11-21 Test Time: 07:46:10 Pat Name: SOHAM BROUSSARD Department: Room: A451 1 Gender: F Project Development Manager: MAINOR : 1980 Requested By: HECTOR HOWARD Order Number: [id number] Reading MD: Rigoberto Leiva Measurements Intervals [place] Rate: 68 P: 53 ME: 163 QRS: 16 QRSD: 92 T: 1 QT: 438 QTc: 467 Interpretive Statements Sinus rhythm Compared to ECG 11/20/2021 01:12:06 Atrial fibrillation no longer present Electronically Signed On 11-21-2021 8:53:43 EST by Rigoberto Leiva
[2021-11-21 09:14] VITALS: BP 105/46
--- NOTE | 2021-11-21 09:51 | Discharge Summary ---
Providers - Providers Date of Admission: 11/20/21 04:46 Date of discharge: 11/21/21 Attending physician: LARON SHAH MD 11/20/21 Consult to Cardiac Rehabilitation [CONS] Routine Reason For Exam: Phase I 11/20/21 03:24 Consult to Physician [CONS] Urgent Comment: Consulting Provider: TEJINDER CHOW Physician Instructions: Reason For Exam: afib rvr 11/20/21 04:55 Consult to Physician [CONS] Routine Comment: Consulting Provider: JORDEN GONZALES Physician Instructions: Reason For Exam: a.fib Hospitalization Reason for admission: palpitations Condition: Stable Hospital course: History of present illness: 41-year-old female with a past medical history of obesity and previous A. fib was brought to the emergency room because of palpitation arrhythmia and chest pain since this evening. Patient was about to lay down to go to bed when she felt her heart racing with shortness of breath and very mild chest tightness. Symptoms worse with exertion. Upon triage assessment patient was noted to have a heart rate of 150s with A. fib on the initial EKG. patient's dental laboratory worker is located in [place]. Patient states she has a previous history of atrial fibrillation and was on Eliquis and unknown heart rate control medication in the past. She has been off her meds for the past 2 years since she converted to sinus rhythm. Patient has recently been on vacation for the last several days has been increasing her caffeine intake and drinking coffee and a lot of Coca- [employer]. She also missed her daily dose of a.m. dose of propanolol and did not take it yesterday evening. In the emergency room patient is found to have A. fib with RVR. Heart rate improved after Cardizem bolus 20 mg followed by Cardizem drip at 5 milligrams per hour. Cardiology consult ordered. Patient exacerbation could be secondary to increased caffeine intake and delayed propanolol intake as well. Hospital Course: Karol Gutiérrez was admitted for atrial fibrillation with rapid ventricular response. Rate was controlled with a diltiazem drip which was initiated in our emergency department. Telemetry at the time of assessments demonstrated rate controlled atrial fibrillation. Echocardiogram ordered was read as normal. Cardiology was consulted and she was started on oral Cardizem and initiated on oral anticoagulation (Eliquis) due to her elevated [id number] score.. She will be discharged home with a prescription for Cardizem 90 mg every 8 hour, Eliquis 5 mg p.o. twice daily, atorvastatin 40 mg p.o. nightly (transmitted to pharmacy). She was also told to resume her home propranolol. She was told to clarify what antihypertensives she should continue as hydrochlorothiazide was n oted to be on her medication list but she had stated she does not take this medication anymore. She was also given instructions to follow-up with her outpatient dental laboratory worker in [facility] regarding her hospital stay here. She is also instructed to follow-up with her primary care doctor in 3 to 5 days. Disposition: 01 HOME / SELF CARE / HOMELESS Final Discharge Diagnosis (Prints w/discharge instructions): Atrial fibrillation with rapid ventricular response Time spent for discharge: 35 Core Measure Documentation - Palliative Care Palliative Care/ Comfort Measures: Not Applicable - Core Measures Any of the following diagnoses?: none Exam - Physical Exam Narrative exam: Physical Exam: VITAL SIGNS: Reviewed. GENERAL: The patient appears normally developed, Vital signs as documented. Elevated BMI HEAD: No signs of head trauma. EYES: Pupils are equal. Extraocular motions intact. EARS: Hearing grossly intact. MOUTH: Oropharynx is normal. NECK: No adenopathy, no JVD. CHEST: Chest with clear breath sounds bilaterally. No wheezes, rales, or rhonchi. CARDIAC: Regular rate and irregular rhythm. S1 and S2, without murmurs, gallops, or rubs. VASCULAR: No Edema. Peripheral pulses normal and equal in all extremities. ABDOMEN: Soft, non tender and non distended. No rebound or guarding, and no masses palpated. Bowel Sounds normal. MUSCULOSKELETAL: Good range of motion of all major joints. Extremities without clubbing, cyanosis or edema. NEUROLOGIC EXAM: Alert and oriented x 4. no focal sensory or strength deficits. PSYCHIATRIC: Mood normal. SKIN: detail exam as documented in skin assessment - Constitutional Vitals: Temp Pulse Resp BP Pulse Ox 96.8 F L 64 18 105/46 98 11/21/21 08:50 11/21/21 08:50 11/21/21 08:50 11/21/21 08:50 11/21/21 08:50 Plan Plan of Treatment: Karol Gutiérrez was admitted for atrial fibrillation with rapid ventricular response. Rate was controlled with a diltiazem drip. Echocardiogram was normal. Cardiology was consulted and she was started on oral Cardizem and initiated on oral anticoagulation (Eliquis) due to her elevated [id number] score.. She will be discharged home with a prescription for Cardizem 90 mg every 8 hour, Eliquis 5 mg p.o. twice daily, atorvastatin 40 mg p.o. nightly (transmitted to pharmacy). You may continue your home propranolol however we recommend you clarify your antihypertensive regimen with your dental laboratory worker and primary care doctor. She was also given instructions to follow-up with her outpatient dental laboratory worker in [facility] regarding her hospital stay here. She is also instructed to follow-up with her primary care doctor in 3 to 5 days. Follow up with: STEVEN CASTELAN [Other] - 7 Days Prescriptions: AtorvaSTATin [Lipitor] 40 mg PO QHS 30 Days #30 tablet dilTIAZem [Cardizem] 90 mg PO Q8HR 30 Days #90 tablet Apixaban [Eliquis] 5 mg PO Q12HR 30 Days #60 tablet
[2021-11-21] MEDS ORDERED: ASPIRIN EC 325 MG TAB PO SCH (10:00)
--- NOTE | 2021-11-21 11:29 | Progress Note ---
Assessment and Plan Patient is a 41-year-old female with a past medical history of A. fib who was brought to the ED due to having palpitations 1 day prior to admission Afib w/ RVR Obesity Echo 11/20/2021-EF 55 to 60%. Right ventricle systolic function is normal. Left and right atrium are normal in size. No aortic regurgitation. No mitral valve regurgitation. Plan: EKG showed A. fib with RVR rate [address]-T abnormalities. No acute ischemic changes. Troponins negative x3. Patient denies chest pain. AMI ruled out Repeat EKG on 11/21/2021 shows sinus rhythm rate 68 no acute ischemic changes Convert to diltiazem 240mg PO QD ContinueEliquis for anticoagulation Patient cardiac status stable for discharge Patient should follow-up with her primary licensing services clerk in 1 to 2 weeks after discharge Patient seen in conjunction with Dr. Levia who agrees with this plan of care - Patient Problems (1) Obesity Current Visit: Yes Status: Acute (2) Acute coronary syndrome Current Visit: Yes Status: Acute (3) Atrial fibrillation with rapid ventricular response Current Visit: Yes Status: Acute (4) DVT prophylaxis Current Visit: Yes Status: Acute Subjective Date of service: 11/21/21 Principal diagnosis: A. fib with RVR Interval history: Patient resting in bed in no acute distress. Patient reports feeling much better Patient converted to sinus rhythm overnight. Patient currently sinus 70 on monitor Objective Vital Signs Temp Pulse Resp BP Pulse Ox 11/21/21 10:08 100 11/21/21 08:50 96.8 F L 64 18 105/46 98 11/21/21 06:17 98.0 F 76 18 112/59 96 11/21/21 00:34 97.4 F L 69 18 130/84 93 11/20/21 22:00 106 H 98 11/20/21 21:31 98.4 F 96 H 20 127/68 97 11/20/21 20:40 99 H 14 137/67 11/20/21 20:31 105 H 26 H 137/67 11/20/21 20:30 100 H 24 121/73 11/20/21 20:20 117 H 15 121/73 96 11/20/21 20:15 99 H 12 121/73 11/20/21 20:12 109 H 20 121/73 11/20/21 20:01 101 H 27 H 121/73 97 01/25/22 20:00 97 H 23 122/72 97 11/20/21 19:50 93 H 28 H 122/72 98 11/20/21 19:45 95 H 15 122/72 98 11/20/21 19:40 98 H 20 122/72 98 11/20/21 19:31 87 13 122/72 97 11/20/21 19:30 122/72 11/20/21 19:20 96 H 12 125/72 11/20/21 19:16 90 14 11/20/21 19:15 97 H 20 125/72 11/20/21 19:01 100 H 27 H 125/72 98 11/20/21 18:45 80 19 123/76 98 11/20/21 18:31 90 21 123/76 97 11/20/21 18:15 89 24 121/74 97 11/20/21 18:01 97 H 16 121/74 98 11/20/21 17:45 117 H 29 H 125/75 97 11/20/21 17:31 85 34 H 125/75 98 11/20/21 17:15 88 21 115/77 98 11/20/21 17:01 96 H 26 H 115/77 98 11/20/21 16:51 14 115/78 95 11/20/21 14:46 97 H 112/76 11/20/21 14:45 102 H 18 112/76 11/20/21 14:31 95 H 11 L 112/76 11/20/21 14:15 102 H 27 H 98/60 11/20/21 14:01 109 H 18 98/60 11/20/21 13:45 91 H 14 98/60 11/20/21 13:31 105 H 24 98/60 11/20/21 13:15 89 21 126/82 11/20/21 13:01 103 H 13 126/82 11/20/21 12:45 101 H 20 120/56 11/20/21 12:31 105 H 17 120/56 11/20/21 12:15 102 H 25 H 104/69 11/20/21 12:01 98 H 13 104/69 11/20/21 11:45 86 25 H 107/77 11/20/21 11:33 105 H 16 112/85 - Physical Examination General: No Apparent Distress HEENT: Positive: PERRL Neck: Positive: trachea midline Cardiac: Positive: Reg Rate and Rhythm Neuro: Positive: Grossly Intact Abdomen: Positive: Soft, Active Bowel Sounds Skin: Negative: Rash, Suspicious Lesions, Ulceration Extremities: Present: normal. Absent: edema - Labs and Meds Coagulation 11/20/21 Range/Units 14:34 PT 15.9 H (12.2-14.9) Sec. INR 1.15 H (0.87-1.13) APTT 28.4 (24.2-36.6) Sec. CBC 11/20/21 11/21/21 Range/Units 14:34 04:17 WBC 8.9 9.8 (4.5-11.0) K/mm3 RBC 4.58 4.53 (3.65-5.03) M/mm3 Hgb 12.5 12.5 (10.1-14.3) gm/dl Hct 38.6 38.3 (30.3-42.9) % Plt Count 243 241 (140-440) K/mm3 Lymph # (Auto) 4.1 (1.2-5.4) K/mm3 [place] # (Auto) 0.6 (0.0-0.8) K/mm3 Eos # (Auto) 0.3 (0.0-0.4) K/mm3 Baso # (Auto) 0.1 (0.0-0.1) K/mm3 Comprehensive Metabolic Panel 11/20/21 11/21/21 Range/Units 14:34 04:17 Sodium 138 (137-145) mmol/L Potassium 4.6 (3.6-5.0) mmol/L Chloride 104.8 (98-107) mmol/L Carbon Dioxide 22 (22-30) mmol/L BUN 11 (7-17) mg/dL Creatinine 0.8 0.9 (0.6-1.2) mg/dL Glucose 105 H (65-100) mg/dL Calcium 8.5 (8.4-10.2) mg/dL - Imaging and Cardiology EKG: report reviewed, image reviewed Echo: report reviewed - Telemetry EKG Rhythm: Sinus Rhythm - EKG Sinus rhythms and dysrhythmias: sinus rhythm
[2021-11-21] MEDS: APIXABAN 5 MG TAB PO SCH (14:46)
[2021-11-21] MEDS: FAMOTIDINE 20 MG TAB PO SCH (14:46)
[2021-11-22] MEDS ORDERED: dilTIAZem CD 240 MG CAP PO SCH (10:00)
== END 2021-11-21 15:57 | disposition home or self-care (01) | DRG 310 ==
LOC: ED 01:07 → CC1 04:46 → 4A 13:32
PROVIDERS: ADMIT Hospitalist; ATTEND Internal Medicine
DX: I48.91 Unspecified atrial fibrillation (principal); E66.01 Morbid (severe) obesity due to excess calories; Z68.39 Body mass index [BMI] 39.0-39.9, adult; Z88.8 Allergy status to other drugs, medicaments and biological substances
CPT/HCPCS: 36415; 71045; 80048; 82565; 83735; 84439; 84443; 84484; 84703; 85007; 85025; 85027; 85610; 85730; 93005; 93010; 93306; G0378; J3490; J1644; J7040